=== PATIENT | female | born 1930 | race Caucasian/White ===

== ENCOUNTER → 2017-12-07 | Outpatient (CLI) | payer MEDICARE ==
--- NOTE | 2017-12-07 17:18 | Diagnostic Imaging Report ---
PROCEDURE:X-RAY LEFT HAND, THREE OR MORE VIEWS COMPARISON:None. INDICATIONS:FELL ON LEFT HAND AND PAIN ON LEFT FOURTH FINGER FINDINGS: Cortical discontinuity along the dorsal aspect of the fourth distal phalanx on lateral view without overlying soft tissue swelling. Otherwise, there are no acute displaced fractures. No dislocations, lytic or blastic lesions. Moderate to severe degenerative changes of the first carpometacarpal joint, and mild to moderate degenerative changes of the first interphalangeal joint, and second and third distal interphalangeal joints. The bones are diffusely demineralized which may limit evaluation of subtle nondisplaced fractures. The soft-tissues are unremarkable. CONCLUSION: Cortical discontinuity along the dorsal aspect of the fourth distal phalanx which may be subacute or chronic given the lack of overlying soft tissue swelling. Recommend correlation with focal point tenderness given reported fourth finger pain. Dictated by: Deshawn Pardo M.D. on 12/07/2017 at 17:18 Electronically approved by: Deshawn Pardo M.D. on 12/07/2017 at 17:18
== END ==
LOC: RAD 16:31
PROVIDERS: ATTEND Family Medicine
DX: S60.222A Contusion of left hand, initial encounter (principal)

== ENCOUNTER 2020-08-09 12:10 | Emergency (ER) | payer MEDICARE ==
[~2020-08-09] VITALS: Ht 157.5 cm; Wt 58.1 kg
[2020-08-09] MEDS ORDERED: KETOROLAC TROMETHAMINE 30 MG/ML VIAL IV ONE (12:22)
[2020-08-09] MEDS ORDERED: KETOROLAC TROMETHAMINE 30 MG/ML VIAL ONE (12:35)
--- OUTSIDE RECORDS SUMMARY | 2020-08-09 13:22 | XMS REPORT | Clinical Summary ---
Author Author [facility] Organization [facility] Address Unknown Phone Unavailable Care Team Providers Care Statement Clerk Name Role Phone Eusebio Scott MD PCP Allergies Comments Active Allergy Reactions Severity Noted Date Codeine 12/31/2016 Medications End Date Status Medication Sig Dispensed Refills Start Date Active levothyroxine (SYNTHROID, TK 1 T PO OES 0 11/25 LEVOXYL) 50 mcg tablet ONCE A DAY IN 7 THE MORNING FOR 90 DAYS Active clopidogrel (PLAVIX) 75 Take 75 mg by 0 mg tablet mouth daily. 7 Active metoprolol succinate XL 0 (TOPROL-XL) 50 mg 24 hr 7 tablet Active aspirin (ECOTRIN) 81 MG Take 81 mg by 0 enteric coated tablet mouth daily. Active diclofenac (VOLTAREN) 1 % Apply 500 g 1 gel topically 4 8 (four) times a day. Apply 1-2 grams to affected area 3 times daily. 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 02/21/2019 DDD (degenerative disc disease), lumbar 02/21/2019 Chronic right-sided low back pain without sciatica 0 02/21/2019 Bilateral primary osteoarthritis of knee 09/27/2018 Acute pain of both knees 09/27/2018 Abdominal pain Colon polyp Diarrhea Encounters Care Team Description Date Type Specialty James Randall MD Bilateral primary osteoarthritis of knee (Primary Dx) 08/08/2020 Office Visit Orthopedic Surgery 08/08/2020 Travel after 08/09/2019 Surgical History Surgery Date Site/Laterality Comments CHOLECYSTECTOMY APPENDECTOMY HYSTERECTOMY TONSILLECTOMY BLADDER SUSPENSION COLONOSCOPY UPPER GASTROINTESTINAL ENDOSCOPY CORONARY ANGIOPLASTY WITH STENT PLACEMENT GALLBLADDER SURGERY Medical History Medical History Date Comments Hypertension Diverticulitis of colon Colon polyp Disease of thyroid gland Abdominal pain Coronary artery disease TIA (transient ischemic attack) Diarrhea Glaucoma Family History Relation Name Status Comments Father Mother Social History Date Tobacco Use Types Packs/Day Years Used Never Smoker Smokeless Tobacco: Never Used Drinks/Week oz/Week Comments Alcohol Use No Sex Assigned at Date Recorded Not on file Date Recorded COVID-19 Exposure Response 08/08/2020 9:57 AM CDT In the last month, have you been in contact with No / Unsure someone who was confirmed or suspected to have Coronavirus / COVID-19? Last Filed Vital Signs Not on file Plan of Treatment Health Maintenance Due Date Last Done Comments SHINGLES VACCINES (#1) 02/06/1982 65+ PNEUMOCOCCAL VACCINE 02/06/1997 (1 of 1 - PPSV23) INFLUENZA VACCINE 05/24/2020 Procedures Comments Procedure Name Priority Date/Time Associated Diag nosis XR KNEE 3 VW BILATERAL Routine 08/08/2020 Bilater al primary 10:41 AM CDT osteoarthritis of knee after 08/09/2019 Results * XR Knee 3 Vw Bilateral (08/08/2020 10:41 AM CDT) Specimen Narrative Performed At [facility] X-rays of the right and left knees were taken today. On the AP view, there is some moderate medial compartme nt narrowing, slightly greater on the right and the left. Small periart icular osteophytes are noted. Moderate patellofemoral degeneration is also noted. Small calcification is noted, presumably in the vasculature posterior to the knee. Performing Organization Address City/State/ZIP Code P librado Number [facility] [address] [place] [address] after 08/09/2019 Insurance Type Payer Benefit Subscriber ID Effective Phone Address Plan / Dates Group PPO HUMANA MEDICARE HUMANA [id number] [id number] MEDICARE resent PPO/PFFS/E LYN [facility] [id number] Advance Directives For more information, please contact: [phone] Patient Medical Service Representative Explanation Type Date Recorded Advance Directives, Living Will and Medical Power of Coin Box Inspector
--- OUTSIDE RECORDS SUMMARY | 2020-08-09 13:22 | XMS REPORT | Continuity of Care Document ---
Author Author [facility] t Organization [facility] Address [address] [place] [address] Phone Unavailable Care Team Providers Care Tipple Engineer Name Role Phone UNKNOWN, REFFERING PCP Unavailable Estevan Randall MD Attphys RAUDEL LUGO Attphys Unavailable Payers Payer Name Policy Type Policy Number Effective Date Expiration Date S ource [facility]/PFFS/ERS [id number] 2013 00:00:00 [place] Problems Condition Name Condition Details Condition Category Status Onset Date Resolution Date Last Treatment Date Treating Clinician Comments Source Closed fracture of sacrum with routine healing Closed fracture of sacrum with routine healing Disease Active 2019-03-01 00:00:00 Addy [place] Spinal stenosis of lumbar region with neurogenic meghan ication Spinal stenosis of lumbar region with neurogenic claudication Disease Active 2019-02-21 00:00:00 Addy [place] DDD (degenerative disc disease), lumbar DDD (degenerative di sc disease), lumbar Disease Active 2019-02-21 00:00:00 Addy El Chronic right-sided low back pain without sciatica Chr onic right-sided low back pain without sciatica Disease Active 2019-02-21 00:00:00 Addy El Bilateral primary osteoarthritis of knee Bilateral geno dieter osteoarthritis of knee Disease Active 2018-09-27 00:00:00 Nelson El Acute pain of both knees Acute pain of both knees Disease Acti ve 2018-09-27 00:00:[address] Abdominal pain Abdominal pain Disease Active Addy [place] Colon polyp Colon polyp Disease Active Addy [facility] Diarrhea Diarrhea Disease Active [facility] Allergies, Adverse Reactions, Alerts Allergy Name Allergy Type Status Severity Reaction(s) Onset Date Inacti ve Date Treating Clinician Comments Source Codeine Propensity to adverse reactions to drug Active 2016-12-31 00:00:00 Addy El Social History Social Habit Start Date Stop Date Quantity Comments Source Sex Assigned At [facility] christ[facility] Exposure to SARS-CoV-2 (event) Not sure Addy El Tobacco use and exposure 2020-08-08 00:00:00 2020-08-08 00:00:00 Anthony r used Addy [place] Alcohol intake 2020-08-08 00:00:00 2020-08-08 00:00:00 Current non-drinker of alcohol (finding) Addy El Smoking Status Start Date Stop Date Source Never smoker Addy orellana Medications Ordered Medication Name Filled Medication Name Start Date Stop Da te Current Medication? Ordering Clinician Indication Dosage Frequency Signature (SIG) Comments Components Source aspirin (ECOTRIN) 81 MG enteric coated tablet 2020-08-08 10:07:2 2 Yes 81mg QD Take 81 mg by mouth daily. H ashwin El amLODIPine (NORVASC) 10 mg tablet 2019-02-26 00:00:00 Yes Addy El latanoprost (XALATAN) 0.005 % ophthalmic solution 2018-10-02 00:00:00 Yes INT 1 GTT IN OU 1 TIME IN THE NE Addy [place] diclofenac (VOLTAREN) 1 % gel 2018-09-27 00:00:00 Yes Q.25D Apply topically 4 (four) times a day. Apply 1-2 grams to affected area 3 times daily. Addy El levothyroxine (SYNTHROID, LEVOXYL) 50 mcg tablet 2016-12-18 00:00:00 Yes TK 1 T PO OES ONCE A DAY IN THE MORNING FOR 90 DAYS Addy El clopidogrel (PLAVIX) 75 mg tablet 2016-11-03 00:00:00 Yes 75mg QD Take 75 mg by mouth daily. Addy lE metoprolol succinate XL (TOPROL-XL) 50 mg 24 hr tablet 2016-11-03 00:00:00 Yes Addy orellana Procedures Procedure Date / Time Performed Performing Clinician Shakira e XR KNEE 3 VW BILATERAL 2020-08-08 10:41:29 James Randall Plan of Care Planned Activity Planned Date Details Comments Source Future Scheduled Test 2020-05-24 00:00:00 INFLUENZA VACCINE [code = INFLUENZA VACCINE] [facility] Scheduled Test 1997-02-06 00:00:00 65+ PNEUMOCOCCAL V ACCINE (1 of 1 - PPSV23) [code = 65+ PNEUMOCOCCAL VACCINE (1 of 1 - PPSV23)] [facility] Scheduled Test 1982-02-06 00:00:00 SHINGLES VACCINES (#1) [code = SHINGLES VACCINES (#1)] [facility] Encounters Start Date/Time End Date/Time Encounter Type Admission Type Attendi [facility] Care Department Encounter ID Source 2020-08-08 00:00:00 2020-08-08 00:00:00 Outpatient ANDREW RANDALL ER [facility] [id number] [facility] 2020-08-08 00:00:00 2020-08-08 00:00:00 Outpatient ANDREW RANDALL ER [facility] [id number] [facility] 2017-08-23 11:00:00 2017-08-23 11:00:00 Outpatient C [facility] [id number] [facility] Results Test Description Test Time Test Comments Results Result Comments Source HAND 3+ VIEWS LEFT [facility] [address] [address] Patient Name: DEVANG GALVEZ MR #: [id number] : 1930 Age/Sex: 87/F Req #: [id number] Adm Physician: Ordered by: RAUDEL LUGO MD Report #: [id number] Location: [facility] Room/Bed: Procedure: [id number] DX/HAND 3+ VIEWS LEFT Exam Date: 12/07/17 Exam Time: 1650 REPORT STATUS: Signed PROCEDURE: X-RAY LEFT HAND, THREE OR MORE VIEWS COMPARISON: None. INDICATIONS: FELL ON LEFT HAND AND PAIN ON LEFT FOURTH FINGER FINDINGS: Cortical discontinuity along the dorsal aspect of the fourth distal phalanx on lateral view without overlying soft tissue swelling. Otherwise, there are no acute displaced fractures. No dislocations, lytic or blastic lesions. Moderate to severe degenerative changes of the first carpometacarpal joint, and mild to moderate degenerative changes of the first interphalangeal joint, and second and third distal interphalangeal joints. The bones are diffusely demineralized which may limit evaluation of subtle nondisplaced fractures. The soft-tissues are unremarkable. CONCLUSION: Cortical discontinuity along the dorsal aspect of the fourth distal phalanx which may be subacute or chronic given the lack of overlying soft tissue swelling. Recommend correlation with focal point tenderness given reported fourth finger pain. Dictated by: Deshawn Braxton M.D. on 12/07/2017 at 17:18 Electronically approved by: Deshawn Braxton M.D. on 12/07/2017 at 17:18 Dictated By: DESHAWN BRAXTON MD Pam ctronically Signed By: DESHAWN BRAXTON MD on 12/07/171717 Transcribed By: MAYRA on 12/07/178 COPY TO: RAUDEL LUGO MD
[2020-08-09] MEDS ORDERED: ACETAMINOPHEN 325 MG TAB PO ONE (14:00)
--- NOTE | 2020-08-09 14:00 | Diagnostic Imaging Report ---
EXAMINATION: WRIST COMPLETE RIGHT INDICATION: right hand fracture COMPARISON: None FINDINGS/IMPRESSION: There is a minimally displaced, intra-articular, comminuted fracture of the distal radius with mild dorsal angulation. There is a minimally displaced ulnar styloid process fracture. Surrounding soft tissue edema. Diffuse osteopenia. Well-corticated small bony fragment adjacent to the distal ulna, which may represent sequela of prior trauma. Severe degenerative changes of the first carpometacarpal joint. Signed by: Dr. Arnulfo Cherry MD on 08/09/2020 1:57 PM
--- NOTE | 2020-08-09 14:33 | Emergency Department Note ---
History of Present Illnes History of Present Illness Chief Complaint: Extremity Trauma/Pain History of Present Illness This is a 89 year old female pt came in via POV for c/o right hand/right wrist pain, pt states that she was fixing her shoes when she turned around and sustained a fall, visible deformity to the right hand, NEG LOC, denies fainting, denies head strike. Historian: Patient Arrival Mode: Car Rodent Control Worker Required: No Onset (how long ago): minute(s) Location: RIGHT WRIST Quality: PAIN Radiation: Reports non-radiation Severity: moderate Onset quality: sudden Timing of current episode: constant Progression: unchanged Chronicity: new Context: Denies recent illness Relieving factors: none Exacerbating factors: none Associated symptoms: Reports denies other symptoms; Denies confusion Past Medical/Family History Physician Review I have reviewed the patient's past medical and family history. Any updates have been documented here. Past Medical History Recent Fever: No Clinical Suspicion of Infectio: No New/Unexplained Change in Ment: No Past Medical History: Hypertension, Hypothyroidism, CAD Past Surgical History: Hysterectomy Other Surgery: Tonsillectomy Appendectomy Cholecystectomy Social History Smoking Cessation: Never Smoker Alcohol Use: None Any Illegal Drug Use: No TB Exposure/Symptoms: No Physically hurt or threatened: No Family History Family history of heart diseas: No Other Any Pre-Existing Lines (PICC,: No Review of Systems Review of Systems Constitutional: Reports no symptoms EENTM: Reports no symptoms Cardiovascular: Reports no symptoms Respiratory: Reports no symptoms Gastrointestinal: Reports no symptoms Genitourinary: Reports no symptoms Musculoskeletal: Reports as per HPI, Reports joint pain, Reports joint swelling Integumentary: Reports no symptoms Neurological: Reports no symptoms Psychological: Reports no symptoms Endocrine: Reports no symptoms Hematological/Lymphatic: Reports no symptoms Physical Exam Related Data Allergies: Coded Allergies: codeine (Verified Allergy, Unknown, 08/09/20) Triage Vital Signs Vital Signs Date Time Temp Pulse Resp B/P (MAP) Pulse Ox O2 Delivery O2 Flow Rate FiO2 08/09/20 12:18 98.0 71 18 136/99 100 Room Air Vital signs reviewed: Yes Physical Exam CONSTITUTIONAL Constitutional: Present well-developed, Present well-nourished HENT HENT: Present normocephalic, Present atraumatic, Present oropharynx clear/moist, Present nose normal HENT L/R: Present left ext ear normal, Present right ext ear normal EYES Eyes: Reports PERRL, Reports conjunctivae normal NECK Neck: Present ROM normal, Present other (NO TENDERNESS, NO PAIN WITH ROM) PULMONARY Pulmonary: Present effort normal, Present breath sounds normal CARDIOVASCULAR Cardiovascular: Present regular rhythm, Present heart sounds normal, Present capillary refill normal, Present normal rate GASTROINTESTINAL Abdominal: Present soft, Present nontender, Present bowel sounds normal GENITOURINARY Genitourinary: Present exam deferred SKIN Skin: Present warm, Present dry MUSCULOSKELETAL Musculoskeletal: Present other (MILD DEFORMITY/SWELLING DISTAL RADIUS/WRIST WITH DECR ROM, BUT N/V INTACT DISTALLY GOOD CAP REFILL AND MOVEMENT OF ALL DIGITS) NEUROLOGICAL Neurological: Present alert, Present oriented x 3, Present no gross motor or sensory deficits PSYCHOLOGICAL Psychological: Present mood/affect normal, Present judgement normal Results Imaging Imaging results reviewed: Yes Assessment & Plan Medical Decision Making MDM FALL/FOOSH WITH RIGHT WRIST PAIN - XRAY R/O FX Reassessment Reassessment DC HOME, SPLINT,SLING, F/U DR RYAN TUESDAY, TRAMADOL Assessment & Plan Final Impression: (1) Distal radius fracture, right (2) Ulna styloid fracture, closed Depart Disposition: HOME, SELF-CARE Last Vital Signs Date Time Temp Pulse Resp B/P (MAP) Pulse Ox O2 Delivery O2 Flow Rate FiO2 08/09/20 12:18 98.0 71 18 136/99 100 Room Air Medications in the ED Ketorolac Tromethamine 30 mg ONCE ONCE IV Last administered on 08/09/20at 12:30; Admin Dose 30 MG; Start 08/09/20 at 12:22; Stop 08/09/20 at 12:26; Status DC Ketorolac Tromethamine 30 mg STK-MED ONCE .ROUTE ; Start 08/09/20 at 12:35; Stop 08/09/20 at 12:28; Status DC Acetaminophen 975 mg ONCE ONCE PO Last administered on 08/09/20at 14:10; Admin Dose 975 MG; Start 08/09/20 at 14:00; Stop 08/09/20 at 14:01; Status DC DONNIE GALLO MD Aug 09, 2020 14:33
== END 2020-08-09 14:24 | disposition home or self-care (01) ==
LOC: ER 13:19
DX: S52.501A Unspecified fracture of the lower end of right radius, initial encounter for closed fracture (principal); S52.611A Displaced fracture of right ulna styloid process, initial encounter for closed fracture; W01.0XXA Fall on same level from slipping, tripping and stumbling without subsequent striking against object, initial encounter; I10 Essential (primary) hypertension; I25.10 Atherosclerotic heart disease of native coronary artery without angina pectoris; E03.9 Hypothyroidism, unspecified
CPT/HCPCS: 29125; 73110; 99284; J1885